=== PATIENT | female | born 1965 | race African-American/Black ===

== ENCOUNTER 2016-10-31 20:22 | Emergency (ER) | payer OTHER ==
[2016-10-31 20:35] VITALS: BP 122/98; PULSE 110; TEMP 98.5
[2016-10-31] MEDS ORDERED: ASPIRIN 81 MG CHEWABLE TABLETS PO ONE (21:53)
--- NOTE | 2016-10-31 21:53 | PDOC ---
History of Present Illness - General History Source: Patient Exam Limitations: No Limitations <Mary Alegria - Last Filed: 11/01/16 00:20> <Ivory Donovan - Last Filed: 11/01/16 02:11> - General Chief Complaint: Tachycardia Stated Complaint: SENT BY URGENT CARE Time Seen by Provider: 10/31/16 21:53 - History of Present Illness Initial Comments: The patient is a 51 yo F with a past medical history significant for HTN, asthma , IDDM, caesarian, rotator cuff surgery, cholecystectomy who was sent from urgent care with a heart rate of 167 and a CXR that showed pneumonia. Patient states she went to urgent care because she felt like her asthma was acting up and was found to be tachycardic. Patient states she had an ECG done at urgent care that showed supraventricular tachycardia at 167 bpm. All QRSs narrow and no P waves. Negative T-waves. Possible Inferior ischemia. Patient states she received steroids at urgent care. Patient states she is postmenopausal. Allergies : NKDA (Mary Alegria) Past History <Mary Alegria - Last Filed: 11/01/16 00:20> - Past Medical History Asthma: Yes COPD: Yes Diabetes: Yes HTN: Yes Hypercholesterolemia: Yes - Surgical History Cholecystectomy: Yes - Immunization History Immunization Up to Date: Yes - Psycho/Social/Smoking Cessation Hx Suicidal Ideation: No Smoking History: Current every day smoker Number of Cigarettes Smoked Daily: 11 Information on smoking cessation initiated: No Hx Alcohol Use: No Drug/Substance Use Hx: No Substance Use Type: None <Ivory Donovan - Last Filed: 11/01/16 02:11> - Past Medical History Allergies/Adverse Reactions: Allergies Allergy/AdvReac Type Severity Reaction Status Date / Time No Known Allergies Allergy Verified 10/31/16 20:25 Review of Systems - Review of Systems Able to Perform ROS?: Yes <Mary Alegria - Last Filed: 11/01/16 00:20> <Ivory Donovan - Last Filed: 11/01/16 02:11> - Review of Systems Comments:: CONSTITUTIONAL: Absent: fever, no chills, no fatigue EYES: Absent: visual changes ENT: Absent: ear pain, no sore throat CARDIOVASCULAR: +fast heart rate Absent: chest pain, no palpitations RESPIRATORY: Absent: cough, no SOB GI: Absent: abdominal pain, no nausea, no vomiting, no constipation, no diarrhea GENITOURINARY: Absent: dysuria, no frequency, no hematuria MUSKULOSKELETAL: Absent: back pain, no arthralgia, no myalgia SKIN: Absent: rash (Mary Alegria) *Physical Exam <Mary Alegria - Last Filed: 11/01/16 00:20> <Ivory Donovan - Last Filed: 11/01/16 02:11> - Vital Signs Last Vital Signs Temp Pulse Resp BP Pulse Ox 98.5 F 110 H 20 122/98 100 10/31/16 20:26 10/31/16 20:26 10/31/16 20:26 10/31/16 20:26 10/31/16 20:26 - Physical Exam Comments: GENERAL: Well-appearing, well-nourished. No apparent distress. HEENT: Normocephalic, atraumatic. PERRL, EOM intact. CARDIOVASCULAR: Normal S1, S2. Regular rate and rhythm. PULMONARY: Clear to auscultation bilaterally. ABDOMEN: Soft, obese, non-distended, non-tender. EXTREMITIES: Normal ROM in all four extremities. No gross deformities. SKIN: Warm, dry. No rash NEUROLOGICAL: No focal neurological deficits. (Mary Alegria) ED Treatment Course - LABORATORY CBC & Chemistry Diagram: 10/31/16 22:17 10/31/16 22:17 <Mary Alegria - Last Filed: 11/01/16 00:20> - LABORATORY CBC & Chemistry Diagram: 10/31/16 22:17 10/31/16 22:17 <Ivory Donovan - Last Filed: 11/01/16 02:11> - ADDITIONAL ORDERS Additional order review: Laboratory Results 10/31/16 10/31/16 10/31/16 23:20 22:17 22:17 INR D-Dimer Sodium 137 Potassium 4.5 Chloride 99 Carbon Dioxide 28 Anion Gap 10 BUN 12 Creatinine 1.1 H Creat Clearance w eGFR 52.16 Random Glucose 487 H* Calcium 9.0 Magnesium 2.1 Total Bilirubin 0.4 AST 10 L ALT 14 Alkaline Phosphatase 138 H Creatine Kinase 87 Troponin I < 0.02 B-Natriuretic Peptide 600.83 H Total Protein 7.0 Albumin 3.8 Urine Color Yellow Urine Appearance Cloudy Urine pH 5.0 Urine Protein 1+ H Urine Glucose (UA) 3+ H Urine Ketones Negative Urine Blood Negative Urine Nitrite Negative Urine Bilirubin Negative Urine Urobilinogen Negative Ur Leukocyte Esterase 1+ H Urine RBC 2 Urine WBC 12 Ur Epithelial Cells Many Urine Bacteria Rare Blood Type O NEGATIVE Antibody Screen Negative 10/31/16 22:17 INR 1.03 D-Dimer 216 Sodium Potassium Chloride Carbon Dioxide Anion Gap BUN Creatinine Creat Clearance w eGFR Random Glucose Calcium Magnesium Total Bilirubin AST ALT Alkaline Phosphatase Creatine Kinase Troponin I B-Natriuretic Peptide Total Protein Albumin Urine Color Urine Appearance Urine pH Urine Protein Urine Glucose (UA) Urine Ketones Urine Blood Urine Nitrite Urine Bilirubin Urine Urobilinogen Ur Leukocyte Esterase Urine RBC Urine WBC Ur Epithelial Cells Urine Bacteria Blood Type Antibody Screen 10/31/16 22:17 RBC 5.40 H MCV 86.6 MCHC 33.2 RDW 13.9 MPV 9.1 Neutrophils % 84.1 H Lymphocytes % 14.3 Monocytes % 0.8 L Eosinophils % 0.2 Basophils % 0.6 - RADIOLOGY Radiology Studies Ordered: Category Date Time Status CHEST X-RAY PORTABLE* [RAD] Stat Radiology 10/31/16 21:54 Taken Radiograph Interpretation: CXR FINDINGS: The cardiomediastinal silhouette is normal. Lungs are clear. Mild basilar densities appear to be due to overlying soft tissue. No pleural effusion or interstitial edema (Mary Alegria) - Medications Given in the ED: ED Medications Discontinued Medications Generic Name Dose Route Start Last Admin Trade Name Freq PRN Reason Stop Dose Admin Aspirin 162 mg 10/31/16 21:53 10/31/16 22:32 Asa - PO 10/31/16 21:54 162 mg ONCE ONE Administration Medical Decision Making <RajiMary - Last Filed: 11/01/16 00:20> <Ivory Donovan - Last Filed: 11/01/16 02:11> - Medical Decision Making 11/01/16 00:25 51-year-old woman who was seen at urgent care Center and sent to the ER because she had a heart rate of 167 that was documented by an EKG that she brought with her . She says she has a past medical history, was independent diabetes,, hypertension , [id number] history of tobacco use, asthma She did receive IM steroid shot at the urgent care Center Upon arrival, her lungs are clear to auscultation bilaterally Sinus tach at 110 Patient refused to have IV placed Glucose was over 400. She was given subcutaneous insolent. Urinalysis had negative ketones Cardiac enzymes are negative. She denied any chest pain Patient wants to admit does not want to stay for observation for cardiology consult. Chest x-ray was clear with no evidence of pneumonia. This no effusions, no interstitial edema Impression Diagnosis- Tachycardia, hyperglycemia I wanted to admit the patient to OBS telemetry because of her documented heart rate of 167. She did not want to stay. She also would not allow us to place a Hep-Lock. She was only interested in having the chest x-ray because at urgent care she was told she had pneumonia. Chest x-ray was done here and was negative for any infiltrates -pt wants to leave now, signed AMA 11/01/16 02:07 (Ivory Donovan) *DC/Admit/Observation/Transfer <Mary Alegria - Last Filed: 11/01/16 00:20> <Ivory Donovan - Last Filed: 11/01/16 02:11> Diagnosis at time of Disposition: Tachycardia Uncontrolled diabetes mellitus Qualifiers: Diabetes mellitus type: type 1 Diabetes mellitus complication status: with hyperglycemia Qualified Code(s): E10.65 - Type 1 diabetes mellitus with hyperglycemia - Discharge Dispostion Disposition: AGAINST MEDICAL ADVICE - Attestations Scribe Attestion: Documentation prepared by Mary Alegria, acting as medical billing associate for Ivory Donovan MD/. (Mary Alegria)
[2016-10-31] MEDS ORDERED: ASPIRIN 81 MG CHEWABLE TABLETS ONE (22:05)
[2016-10-31 22:39] LABS: BASOPHIL 0.6 % (0-2.0); EOSINOPHIL 0.2 % (0-4.5); MCH 28.7 pg (25.7-33.7); MCHC 33.2 g/dl (32.0-36.0); MEAN CELL VOLUME 86.6 fl (80-96); MEAN PLT VOLUME 9.1 fl (7.5-11.1); NEUTROPHILS 84.1 % (42.8-82.8); PLATELET COUNT 262 K/MM3 (134-434); RDW 13.9 % (11.6-15.6); WHITE BLOOD COUNT 9.2 K/mm3 (4.0-10.0)
[2016-10-31 22:59] LABS: INR 1.03 (0.82-1.09); PROTHROMBIN TIME (PATIENT) 11.3 SEC (9.98-11.88)
[2016-10-31 23:32] LABS: ALBUMIN 3.8 g/dl (3.4-5.0); ANION GAP 10 (8-16); BILIRUBIN,TOTAL 0.4 mg/dL (0.2-1.0); CO2 28 mmol/L (21-32); CREATININE 1.1 mg/dL (0.55-1.02); MAGNESIUM 2.1 mg/dL (1.8-2.4); SGOT/AST 10 U/L (15-37); SGPT/ALT 14 U/L (12-78)
[2016-10-31 23:33] LABS: ALK PHOS 138 U/L (45-117)
[2016-10-31 23:33] LABS: URINE APPEARANCE CLOUDY; URINE BILIRUBIN NEGATIVE (NEGATIVE); URINE BLOOD NEGATIVE (NEGATIVE); URINE COLOR YELLOW; URINE GLUCOSE (UA) 3+ (NEGATIVE); URINE KETONE NEGATIVE (NEGATIVE); URINE NITRITE NEGATIVE (NEGATIVE); URINE UROBILINOGEN NEGATIVE mg/dL (0.2-1.0)
[2016-10-31 23:34] LABS: TROPONIN I < 0.02 ng/ml (0.00-0.05)
[2016-10-31 23:35] LABS: GLUCOSE,RANDOM 487 mg/dL (74-106)
[2016-10-31] MEDS ORDERED: INSULIN (NOVOLOG) ASPART 100 UNITS/ML 10ML VIAL SQ STA (23:37)
[2016-10-31] MEDS ORDERED: SODIUM CHLORIDE 1,000 ML IV STA (23:38)
[2016-10-31 23:41] LABS: URINE LEUK ESTERASE 1+ (NEGATIVE); URINE PROTEIN 1+ (NEGATIVE)
[2016-10-31 23:45] LABS: URINE BACTERIA RARE /hpf (NONE SEEN); URINE RBC 2 /hpf (0-3); URINE WBC 12 /hpf (3-5)
[2016-11-01] MEDS ORDERED: INSULIN (NOVOLOG) ASPART 100 UNITS/ML 10ML VIAL ONE (00:05)
--- NOTE | 2016-11-01 20:23 | EKG ---
Test Reason : Blood Pressure : / mmHG Vent. Rate : 095 BPM Atrial Rate : 095 BPM P-R Int : 170 ms QRS Dur : 082 ms QT Int : 360 ms P-R-T Axes : 064 031 070 degrees QTc Int : 452 ms NORMAL SINUS RHYTHM POSSIBLE LEFT ATRIAL ENLARGEMENT NONSPECIFIC T WAVE ABNORMALITY ABNORMAL ECG WHEN COMPARED WITH ECG OF 28-JAN-2009 10:16, NON-SPECIFIC CHANGE IN ST SEGMENT IN INFERIOR LEADS T WAVE INVERSION NO LONGER EVIDENT IN INFERIOR LEADS CLINICAL CORRELATION IS RECOMMENDED AND REPEAT INDICATED Confirmed by RICK HA MD ([id number]) on 11/01/2016 8:23:41 PM Referred By: Confirmed By:RICK HA MD
== END 2016-10-31 23:35 | disposition left against medical advice (07) ==
LOC: JER 20:22
PROC: 3E013VG Introduction of Insulin into Subcutaneous Tissue, Percutaneous Approach (ICD-10-PCS; principal; 2016-10-31)
DX: I47.1 Supraventricular tachycardia (principal); E10.65 Type 1 diabetes mellitus with hyperglycemia; Z79.4 Long term (current) use of insulin; I10 Essential (primary) hypertension; J45.909 Unspecified asthma, uncomplicated; F17.210 Nicotine dependence, cigarettes, uncomplicated
CPT/HCPCS: 36415; 71010-TC; 80053; 81003; 81015; 82009; 82550; 83735; 83880; 84484; 85025; 85379; 85610; 86850; 86900; 86901; 93005; 93010; 96372; 99281-25

== ENCOUNTER 2018-07-11 18:14 | Emergency (ER) | payer OTHER ==
[2018-07-11 18:33] VITALS: BP 143/94; PULSE 95; TEMP 97.9; BMI 37.5
--- NOTE | 2018-07-11 18:45 | PDOC ---
History of Present Illness - General History Source: Patient Exam Limitations: No Limitations - History of Present Illness Initial Comments: 07/11/18 18:50 The patient is a 52 year old female, with a significant past medical history of IDDM (22 units Novalog nightly), high blood pressure, lipidemia, asthma, and chronic left knee pain s/p fall 2 years ago, who presents to the emergency department with 3 days of ankle pain with associated numbness and heaviness. The patient states she feels a pressure and heaviness to the left ankle at night. She states she was prompted to come to the ED because her left foot becomes very heavy and cold when driving. She denies any new injuries or traumas. She denies use of OTC medications. The patient denies chest pain, shortness of breath, headache and dizziness. The patient denies fever, chills, nausea, vomit, diarrhea and constipation. The patient denies dysuria, frequency, urgency and hematuria. Allergies: NKDA <Luz Rodriguez - Last Filed: 07/11/18 18:50> <Josue Palmer - Last Filed: 07/11/18 18:57> - General Chief Complaint: Pain Stated Complaint: LEFT ANKLE PAIN FOR 4 DAYS Time Seen by Provider: 07/11/18 18:35 Past History <Luz Rodriguez - Last Filed: 07/11/18 18:50> - Past Medical History Asthma: Yes COPD: Yes Diabetes: Yes HTN: Yes Hypercholesterolemia: Yes Psychiatric Problems: Yes (ANXIETY) - Surgical History Cholecystectomy: Yes Orthopedic Surgery: Yes (RT ROTATOR CUFF SX) - Immunization History Immunization Up to Date: Yes - Suicide/Smoking/Psychosocial Hx Smoking History: Current every day smoker Have you smoked in the past 12 months: Yes Number of Cigarettes Smoked Daily: 10 Information on smoking cessation initiated: Yes 'Breaking Loose' booklet given: 09/13/17 Hx Alcohol Use: No Drug/Substance Use Hx: No Substance Use Type: None <Josue Palmer - Last Filed: 07/11/18 18:57> - Past Medical History Allergies/Adverse Reactions: Allergies Allergy/AdvReac Type Severity Reaction Status Date / Time No Known Allergies Allergy Verified 07/11/18 18:16 Home Medications: Ambulatory Orders Albuterol 0.083% Nebulizer Arabella [Ventolin 0.083% Nebulizer Soln -] 1 neb NEB Q4H 11/01/16 Quetiapine Fumarate [Seroquel] 100 tab PO HS 11/01/16 Insulin Aspart [Novolog] 22 unit SQ DAILY 09/13/17 Ranolazine [Ranexa] 1,000 mg PO DAILY 09/13/17 Mirtazapine [Remeron -] 30 mg PO DAILY 09/14/17 Clonazepam [Klonopin] 1 mg PO BID 07/11/18 Ipratropium/Albuterol Sulfate [Combivent Respimat 20-100 Mcg] 1 puff IH DAILY Review of Systems - Review of Systems Able to Perform ROS?: Yes Comments:: 07/11/18 18:50 CONSTITUTIONAL: Absent: fever, chills, diaphoresis, generalized weakness, malaise, loss of appetite HEENT: Absent: rhinorrhea, nasal congestion, throat pain, throat swelling, difficulty swallowing, mouth swelling, ear pain, eye pain, visual Changes CARDIOVASCULAR: Absent: chest pain, syncope, palpitations, irregular heart rate, lightheadedness , peripheral edema RESPIRATORY: Absent: cough, shortness of breath, dyspnea with exertion, orthopnea, wheezing, stridor, hemoptysis GASTROINTESTINAL: Absent: abdominal pain, abdominal distension, nausea, vomiting, diarrhea, constipation, melena, hematochezia GENITOURINARY: Absent: dysuria, frequency, urgency, hesitancy, hematuria, flank pain, genital pain MUSCULOSKELETAL: (+) left ankle pain and swelling. SKIN: Absent: rash, itching, pallor HEMATOLOGIC/IMMUNOLOGIC: Absent: easy bleeding, easy bruising, lymphadenopathy, frequent infections ENDOCRINE: Absent: unexplained weight gain, unexplained weight loss, heat intolerance, cold intolerance NEUROLOGIC: Absent: headache, focal weakness or paresthesia, dizziness, unsteady gait, seizure, mental status changes, bladder or bowel incontinence PSYCHIATRIC: Absent: anxiety, depression, suicidal or homicidal ideation, hallucinations <Luz Rodriguez - Last Filed: 07/11/18 18:50> *Physical Exam - Vital Signs Last Vital Signs Temp Pulse Resp BP Pulse Ox 97.9 F 95 H 18 143/94 96 07/11/18 18:16 07/11/18 18:16 07/11/18 18:16 07/11/18 18:16 04/03/19 18:16 - Physical Exam Comments: 07/11/18 18:50 GENERAL: Well developed, well nourished. Awake and alert. No acute distress. HEENT: Normocephalic, atraumatic. PERRLA, EOMI. No conjunctival pallor. Sclera are non- icteric. Moist mucous membranes. Oropharynx is clear. NECK: Supple. Full ROM. No JVD. Carotid pulses 2+ and symmetric, without bruits. No thyromegaly. No lymphadenopathy. CARDIOVASCULAR: Regular rate and rhythm. No murmurs, rubs, or gallops. Distal pulses are 2+ and symmetric. PULMONARY: No evidence of respiratory distress. Lungs clear to auscultation bilaterally. No wheezing, rales or rhonchi. ABDOMINAL: Soft. Non-tender. Non-distended. No rebound or guarding. No organomegaly. Normoactive bowel sounds. MUSCULOSKELETAL Normal range of motion at all joints. No bony deformities or tenderness. No CVA tenderness. EXTREMITIES: (+) Right calf and ankle are edematous with posterior calf tenderness. Pulses intact. Sensation and motor appear to be intact. No rash or skin breakdown. No cyanosis. No clubbing. SKIN: Warm and dry. Normal capillary refill. No rashes. No jaundice. NEUROLOGICAL: Alert, awake, appropriate. Cranial nerves 2-12 intact. No motor deficits in the upper extremities and lower extremities. Normoreflexic in the upper and lower extremities. Normal speech. Gait is normal without ataxia. PSYCHIATRIC: Cooperative. Good eye contact. Appropriate mood and affect. <Luz Rodriguez - Last Filed: 07/11/18 18:50> - Vital Signs Last Vital Signs Temp Pulse Resp BP Pulse Ox 97.9 F 95 H 18 143/94 96 07/11/18 18:16 07/11/18 18:16 07/11/18 18:16 07/11/18 18:16 07/11/18 18:16 <Josue Palmer - Last Filed: 07/11/18 18:57> Medical Decision Making - Medical Decision Making 07/11/18 18:56 Diabetic neuropathy, less likely DVT, Gout <Josue Palmer - Last Filed: 07/11/18 18:57> *DC/Admit/Observation/Transfer - Attestations Scribe Attestion: 07/11/18 18:51 Documentation prepared by Luz Rodriguez, acting as ophthalmic medical technician for Josue Taveras MD <Luz Rodriguez - Last Filed: 07/11/18 18:50> <Josue Palmer - Last Filed: 07/11/18 18:57> - Discharge Dispostion Condition at time of disposition: Stable
[2018-07-11 19:19] LABS: EOS % 2.4 % (0-4.5); HEMATOCRIT 47.5 % (32.4-45.2); HEMOGLOBIN 15.6 GM/dl (10.7-15.3); LYMPH % 33.6 % (8-40); MCH 28.6 pg (25.7-33.7); MEAN CELL VOLUME 86.9 fl (80-96); MEAN PLT VOLUME 9.1 fl (7.5-11.1); PLATELET COUNT 258 K/MM3 (134-434); RBC 5.46 M/mm3 (3.60-5.2); RDW 13.1 % (11.6-15.6); WHITE BLOOD COUNT 8.6 K/mm3 (4.0-10.8)
--- NOTE | 2018-07-11 19:33 | PDOC ---
*Physical Exam - Vital Signs Last Vital Signs Temp Pulse Resp BP Pulse Ox 97.9 F 95 H 18 143/94 96 07/11/18 18:16 07/11/18 18:16 07/11/18 18:16 07/11/18 18:16 07/11/18 18:16 ED Treatment Course - LABORATORY CBC & Chemistry Diagram: 07/11/18 18:50 07/11/18 18:50 Progress Note - Progress Note Progress Note: Care of this patient was transferred to dc from Dr. Sanders at 1900 hrs. Patient is a 52-year-old female with history of diabetes that is poorly controlled. Patient comes in with some left ankle and leg discomfort and swelling. Symptoms are most likely secondary to peripheral neuropathy as a result of her poorly controlled diabetes however him swelling of the foot and calf so patient is scheduled for an ultrasound Doppler. Doppler is negative patient will be discharged. 20:30 Ultrasound Doppler is negative for DVT. Patient given a copy of Doppler and discharged home. Patient has appointment with her primary doctor in the morning. *DC/Admit/Observation/Transfer Diagnosis at time of Disposition: Edema of left lower extremity Uncontrolled diabetes mellitus Qualifiers: Glycemic state: with hyperglycemia - Discharge Dispostion Disposition: HOME Condition at time of disposition: Stable Decision to Admit order: No - Referrals - Patient Instructions Additional Instructions: Keep your appointment with your doctor in the morning. It is important that you qc manager/blood sugars so you don't develop complications and problems as a result of your sugar being too high. Return to the emergency department immediately with ANY new, persistent or worsening symptoms. Continue any medications as previously prescribed by your physician. You should follow up with your primary doctor as soon as possible regarding today's emergency department visit. . Please make sure your doctor reviews the results of your emergency evaluation. Thank you for coming to the Emergency Department today for your care. It was a pleasure to see you today. Please note that your evaluation is INCOMPLETE until you follow-up with your doctor. - Post Discharge Activity
[2018-07-11 19:34] LABS: ALBUMIN 3.6 g/dl (3.4-5.0); ALK PHOS 106 U/L (45-117); ANION GAP 7 MMOL/L (8-16); BILIRUBIN,TOTAL 0.6 mg/dl (0.2-1); BLOOD UREA NITROGEN 11 mg/dl (7-18); CALCIUM 8.8 mg/dl (8.5-10); CHLORIDE 99 mmol/L (98-107); CO2 29 mmol/L (21-32); CREATININE 0.8 mg/dl (0.55-1.3); POTASSIUM 4.1 mmol/L (3.5-5.1); SGOT/AST 13 U/L (15-37); SGPT/ALT 12 U/L (13-61); SODIUM 135 mmol/L (136-145); TOT PROT 6.3 g/dl (6.4-8.2)
[2018-07-11 19:35] LABS: GLUCOSE,RANDOM 352 mg/dl (74-106)
[2018-07-11] MEDS ORDERED: INSULIN (NOVOLOG) ASPART 100 UNITS/ML 10ML VIAL SQ STA ×2 (19:48→19:53)
[2018-07-11] MEDS ORDERED: INSULIN (NOVOLOG) ASPART 100 UNITS/ML 10ML VIAL ONE (20:04)
== END 2018-07-11 20:36 | disposition home or self-care (01) ==
LOC: FER 18:14
PROC: 3E013VG Introduction of Insulin into Subcutaneous Tissue, Percutaneous Approach (ICD-10-PCS; principal; 2018-07-11)
DX: M79.89 Other specified soft tissue disorders (principal); E11.65 Type 2 diabetes mellitus with hyperglycemia; J44.9 Chronic obstructive pulmonary disease, unspecified; F41.9 Anxiety disorder, unspecified; E78.00 Pure hypercholesterolemia, unspecified; I10 Essential (primary) hypertension; F17.210 Nicotine dependence, cigarettes, uncomplicated
CPT/HCPCS: 36415; 80053; 84550; 85025; 93971-TC; 96372; 99282-25